=== PATIENT | female | born 1980 | race Caucasian/White ===

== ENCOUNTER 2022-12-13 06:19 | Day surgery (SDC) | payer MEDICAID, SELFPAY ==
[2022-12-13] VITALS (9 sets, daily range): BP systolic 119–148; BP diastolic 78–102; PULSE 64–82; RESP 16; TEMP 36.4–36.6; O2SAT 92–99; BMI 34.8
--- NOTE | 2022-12-13 06:16 | SUR.PREOP ---
pt called because not here at arrival time of 0600- pt states she is pulling in driveway right now
--- NOTE | 2022-12-13 06:23 | RAD_ITS ---
STUDY: X-RAY CHEST REASON FOR EXAM: Female, 42 years old. PREOP TECHNIQUE: PA and lateral views of the chest. COMPARISON: Comparison is made with prior study dated 07/05/2013. FINDINGS: There is a 2.1 cm x 1.7 cm nodular density seen on the lateral view overlying the mid dorsal vertebrae. This may represent a nodular density within the superior segment of either the right or left. Correlation with CT scan is recommended. There is no demonstrated pleural abnormality. Normal size heart. Normal mediastinum and eliezer. Normal visualized pulmonary arteries. Normal visualized aortic arch and descending thoracic aorta. Normal visualized thoracic spine. Normal visualized ribs, clavicles, and shoulders. There is no demonstrated abnormality of the visualized soft tissue structures of the upper abdomen. RAD/Chest PA and Lateral IMPRESSION: 2.1 cm x 1.7 cm nodular density seen on the lateral view as described. Correlation with a CT scan is recommended. Electronically Signed: Osman Hein MD at 8:04 EST ,
[2022-12-13 06:50] LABS: Internal QC Validated? YES +Cl - CLEAR BKGD; Pregnancy, Urine Negative Negative
[2022-12-13] MEDS: Lactated Ringers 1,000 ML 15 ML IV ×2 (07:10→08:46)
[2022-12-13] MEDS: Cefazolin 2 GM in 0.9% Normal Saline 100 ML IV (07:30)
[2022-12-13] MEDS: Lidocaine 1% /Epi 1:100 (20ml) 20 ML Vial (07:46)
[2022-12-13] MEDS: oxyCODONE 5 MG Tablet 10 MG PO (11:03)
--- NOTE | 2022-12-13 11:53 | DCINST_ITS ---
Discharge Instructions Follow Up Care Test Results: Test results from this visit will be discussed in further detail at your follow- up appointment, if applicable. Discharge Plan Admission Primary Reason for Your Visit: Left patellar tendon repair Attending Provider: Solomon Mcclelland Primary Care Provider: Magaly Mcclain Instructions Additional Instructions / Restrictions: Follow preprinted instructions from your surgeons office Discharge Orders/Prescriptions Prescriptions: New oxycodone 5 mg Tablet 10 mg PO Q4H PRN PRN (Reason: Pain Score 6-10) 7 Days Qty: 42 0RF ondansetron 4 mg tablet,disintegrating 4 mg PO Q8H PRN (Reason: nausea and vomiting) 5 Days Qty: 15 0RF Continued montelukast 10 MG tablet 10 mg PO DAILY albuterol sulfate [ProAir HFA] 1 PUFF inhaler 2 puff inhalation Q4H PRN PRN (Reason: Sob &/Or Wheezing) tramadol 50 mg Tablet 50 mg PO QHS loratadine [Claritin] 10 mg Tablet 10 mg PO DAILY Trelegy Ellipta 100-62.5-25 mcg Blister With Device 1 inh INHALATION DAILY Referrals / Follow Up: Magaly Mcclain DO [Primary Care Provider] - Solomon Mcclelland DO [Med Staff - Active Staff] - Disposition Disposition (needs filled in before D/C Order can be placed): Home, Self Care
--- NOTE | 2022-12-13 11:54 | OP.PCM_ITS ---
Report of Operation Date of Procedure: 12/13/22 Description of Surgical Findings:: Preoperative diagnosis: Left knee distal patellar tendon avulsion Postoperative diagnosis: Left knee distal patellar tendon tendon avulsion with peritendinous ossicle Procedure: Left knee patellar tendon tendon repair with removal of peritendinous ossicle Surgeon: Solomon Mcclelland DO Yarding [employer] Folding Machine Operator: EVAN Avery Anesthesia: General endotracheal Staff Nuclear Medicine Technologist: Eladio Jaramillo CRNA Complications: None apparent Drains: None Estimated blood loss: 50 cc Urinary output: None recorded IV fluids: 1 L crystalloid Specimens: None Surgical implants: Arthrex 4.75 mm swivel lock anchor x4 Surgical indications: This is a 42-year-old female seen in the outpatient setting for left knee pain and weakness. She had significant extensor lag after an injury approximately 2 weeks ago where a solid glass measuring cup landed awkwardly and caused a direct blow to her tibial tubercle. X-rays demonstrated patellar gurmeet and subsequent MRI confirmed a distal avulsion of the patellar tendon. 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 I recommended surgical intervention in the form of left patellar tendon repair. The risks, benefits, alternatives to procedure were reviewed with the patient at length. She agreed to proceed with surgery. Risks included but were not limited to bleeding, infection, loss of life or limb, risk of anesthesia, need for additional surgery, persistent pain, nonhealing tendon, arthrofibrosis, extensor lag, neurovascular injury, DVT or PE. Informed sent was obtained prior to procedure. Description of procedure: Patient was identified in the preoperative holding area by name, medical record number, and date of . The operative extremity was marked. Informed consent was confirmed with the patient. All questions were answered to his satisfaction. At time of her procedure, patient was brought to the operative suite and posit ioned supine a standard operating table. All bony prominences were well-padded. General anesthesia was induced with a laryngeal mask airway placed. After adequate anesthesia and securing the tube, a well-padded pneumatic tourniquet was applied to left upper thigh. We then prepped and draped the left lower extremity in a normal, sterile orthopedic fashion after placing a bump under the patient's left hip and elevating the left lower extremity slightly on bath blankets. 2 g Ancef was administered prior to the incision by anesthesia staff. We then performed a timeout with all parties in attendance in agreement with the side, site, and operation be performed. No concerns were voiced and we elected to proceed. I first exsanguinated the left lower extremity and Esmarch bandage. Tourniquet was inflated 280 mmHg remained up for approximately 50 minutes. Esmarch was removed. I planned a midline incision from the distal aspect of the tibial tubercle to the proximal pole the patella. Full-thickness skin flaps were developed with a 10 blade scalpel. Peritenon was encountered and split in line with the incision. Hematoma was encountered as well as patellar tendon rupture at the distal pole. There were minimal remaining fibers at the distal pole which were left intact to facilitate anatomic reapproximation of the tendon. I debrided the tibial tubercle to facilitate tendon to bone healing. I was able to identify the ossicle which was along the deep surface of the proximal aspect of the patellar tendon. I elevated the ossicle from its peritendinous attachment sharply with a 15 blade scalpel and removed the ossicle from the surgical field. I then selected my planned insertion of suture anchors for double row repair of the patellar tendon to the tibial tubercle. At the proximal attachment site of the tibial tubercle, I placed a medial and lateral double loaded 4.75 mm swivel lock anchors. Due to the dense bone in this region, we utilized a drill and threaded tap prior to anchor insertion. The anchor was then placed, loading a fiber tape suture in both anchors for additional fixation. I then took 1 limb from each suture anchor and performed a Krak?w running, locking stitch through both the medial and lateral aspects of the tendon. Using the other suture a inverted mattress was then placed. I then placed a inverted mattress fiber tape suture proximal to the sutures to develop a ripstop construct. I then selected the area for the distal row anchors approximately 1 cm distally at the distal aspect of the patellar tendon. These were placed in similar fashion as the proximal row with excellent cortical purchase. A suture limb from each suture from both the medial lateral fixation was placed through each anchor. Sutures were tensioned sequentially and the anchors were placed with excellent purchase and excellent reapproximation of the tendon to the tibial tubercle with compression gained from the double row construct. I then utilized the stay sutures in both the distal row anchors. These were tied sequentially to each other for a double amy effect for additional compression along the distal aspect of the footprint. The knee was brought through a gentle range of motion. I was able to flex the knee to approximately 40 degrees without undue tension about the construct and stable fixation. I then thoroughly irrigated the wound normal saline solution. A retinacular rent was repaired along the lateral aspect of the patellar tendon with 2 interrupted [id number] #1 Vicryl sutures. Tourniquet was deflated. Hemostasis was achieved with Bovie cautery. I then closed the peritenon with interrupted [id number] #1 Vicryl suture. Bursal layer was closed with a running, locking 0 Vicryl suture. Dermis was reapproximated buried 2-0 Vicryl suture. Skin was finally approximated with a 4-0 Monocryl V-Loc barbed suture and Dermabond. Sterile compression dressing was applied. Patient was placed in a T ROM hinged knee brace locked in full extension. Anesthesia was then reversed. Patient was safely explained in the operative suite. [place] was [place] and subsequent to PACU in stable condition. Patient received a femoral nerve block in the PACU for postoperative analgesia. Post Operative Plan: Weightbearing: Weightbearing as tolerated left lower extremity -hinged knee brace locked in extension at all times. To be removed only for hygiene purposes, at which time the knee should not be flexed. Plan to initiate physical therapy 2 weeks postoperatively for range of motion of 0 to 30 degrees with staged progression per protocol. Antibiotics: Ancef 2 g administered prior to incision DVT Prophylaxis: SCDs, 81 mg aspirin twice daily [place]: None Dressing: Maintain surgical silver dressing x5 days, then okay to remove. Okay to shower on postoperative day #2 after removing Elmo bandage. X-Rays: None Follow-up: 2 weeks in my office
== END 2022-12-13 11:43 | disposition home or self-care (01) ==
LOC: SDC 06:21 → AC 06:23
PROVIDERS: Anesthesiology; Referring Provider Student in an Organized Health Care Education/Training Program; Visit Provider Student in an Organized Health Care Education/Training Program
PROC: (CPT 27380; principal; 2022-12-13 07:15)
DX: M66.262 Spontaneous rupture of extensor tendons, left lower leg (principal); J45.909 Unspecified asthma, uncomplicated; F17.210 Nicotine dependence, cigarettes, uncomplicated; R03.0 Elevated blood-pressure reading, without diagnosis of hypertension; E66.8 Other obesity; Z68.33 Body mass index [BMI] 33.0-33.9, adult
CPT/HCPCS: 27380; 71046; 81025; C1713; J7120; J2405

== ENCOUNTER 2023-04-18 06:10 | Day surgery (SDC) | payer MEDICAID, SELFPAY ==
[2023-04-18] VITALS (7 sets, daily range): BP systolic 117–135; BP diastolic 78–89; PULSE 70–78; RESP 16–18; TEMP 36.3–37.3; O2SAT 95–100; BMI 35.5
[2023-04-18 06:44] LABS: Internal QC Validated? YES +Cl - CLEAR BKGD; Pregnancy, Urine Negative Negative
[2023-04-18] MEDS: Lactated Ringers 1,000 ML 15 ML IV (06:56)
[2023-04-18] MEDS: Cefazolin 2 GM in 0.9% Normal Saline 100 ML IV (07:50)
[2023-04-18] MEDS: Epinephrine (1 mg/ml) 1 MG/ML VIAL (08:36)
--- NOTE | 2023-04-18 09:23 | DCINST_ITS ---
Discharge Instructions Follow Up Care Test Results: Test results from this visit will be discussed in further detail at your follow- up appointment, if applicable. Discharge Plan Admission Primary Reason for Your Visit: Right shoulder arthroscopy Attending Provider: Solomon Mcclelland Primary Care Provider: Magaly Mcclain Instructions Additional Instructions / Restrictions: Follow preprinted instructions from surgeon's office. Discharge Orders/Prescriptions Prescriptions: No Action montelukast 10 MG tablet 10 mg PO DAILY albuterol sulfate [ProAir HFA] 1 PUFF inhaler 2 puff inhalation Q4H PRN PRN (Reason: Sob &/Or Wheezing) loratadine [Claritin] 10 mg Tablet 10 mg PO DAILY Trelegy Ellipta 100-62.5-25 mcg Blister With Device 1 inh INHALATION DAILY celecoxib 200 mg capsule 200 mg PO DAILY Label Comments: take 1 tablet by mouth twice a day with food if needed for pain STOP 5 DAYS PRIOR TO OR hydrocodone-acetaminophen 5-325 mg tablet 1 tab PO PRN PRN (Reason: Pain) Label Comments: take 1 to 2 tablets by mouth every 6 hours if needed for pain fluticasone propionate 50 mcg/actuation spray,suspension 1 spray INTRANASAL PRN PRN (Reason: ALLERGIES) Label Comments: place 1 spray into each nostril every morning Referrals / Follow Up: Magaly Mcclain DO [Primary Care Provider] - Solomon Mcclelland DO [Med Staff - Active Staff] - Disposition Disposition (needs filled in before D/C Order can be placed): Home, Self Care
--- NOTE | 2023-04-18 09:24 | OP.PCM_ITS ---
Report of Operation Date of Procedure: 04/18/23
--- NOTE | 2023-04-18 09:24 | PCM.OPRPT ---
Report of Operation Date of Procedure: 04/18/23 Description of Surgical Findings:: Preoperative diagnosis: 1. Right shoulder partial rotator cuff tear 2. Right shoulder subacromial impingement syndrome 3. Right long head biceps tendinosis 4. SLAP tear right shoulder Postoperative diagnosis: 1. Right shoulder partial rotator cuff tear 2. Right shoulder subacromial impingement syndrome 3. Right long head biceps tendinosis 4. SLAP tear right shoulder 5. Right shoulder os acromiale Procedure: 1. Diagnostic and operative right shoulder arthroscopy with rotator cuff repair 2. Right shoulder mini open subpectoral biceps tenodesis 3. Right shoulder arthroscopic debridement of labrum, subacromial bursitis and capsular tissue Primary Surgeon: Solomon Mcclelland DO Chief Librarian Circulation Department: Lilliam Aleman PA-C Anesthesia: General LMA with interscalene block Anesthesiologist: Dr. Knapp Complications: None apparent Specimen: None Estimated blood loss: 10 cc IV fluids: 1000 cc crystalloid Urine output: None Packing/drains: None Implants: Arthrex 4.75 mm swivel lock anchor x 1, Arthrex metallic biceps button x1 Intraoperative findings: Type II SLAP tear, extensive right shoulder subacromial bursitis, os acromiale, biceps tendinosis within the intertubercular groove, 80% partial articular sided rotator cuff tear of the supraspinatus Preoperative indications: This is a 42-year-old female who has had several months of right shoulder pain following an injury at which time she also sustained a left patellar tendon rupture. She underwent uncomplicated left patellar tendon repair on 12/13/2022. An MRI was obtained postoperatively of right shoulder demonstrated partial tearing of the supraspinatus, SLAP/biceps tendon pathology, and an exam consistent with subacromial impingement syndrome. A subacromial corticosteroid injection was administered with some mild relief. I recommended postponing surgical intervention of the right shoulder to allow recovery of the more urgent repair of her left patellar tendon rupture. She worked with physical therapy on the right shoulder but had persistent pain and weakness. Given her failure of nonoperative treatment, I recommended surgical intervention in the form of right shoulder diagnostic and operative arthroscopy with rotator cuff debridement versus repair, biceps tenodesis, subacromial decompression. I reviewed the risks, benefits, alternatives the procedure with the patient. Risks included but were not limited to bleeding, infection, loss of life or limb, nonhealing tendon, persistent pain, persistent weakness, stiffness, need for prolonged immobilization, prolonged therapy, DVT or PE, risk of anesthesia, neurovascular injury, need for additional surgery. Patient expressed understanding these risks and wished to proceed with surgery. Description of procedure: Patient was identified in the preoperative holding area by name, medical record number, and date of . Informed consent was confirmed with the patient. The operative extremity was marked with a surgical marker. All questions were answered to the patient's satisfaction. An interscalene block was administered prior to the procedure by the anesthesia staff. At time of her procedure, patient was was brought to the operative suite and positioned supine on a standard operating table. General anesthesia was induced and LMA placed. Patient was then positioned in the lateral decubitus position with all bony prominences well-padded and an axillary roll was placed. She was held in position with a beanbag. We spun the bed approximately 20 degrees. We then prepped and draped the operative upper extremity in a normal, sterile orthopedic fashion. We performed a timeout with all parties in attendance in agreement with the side, site, and operation be performed. No concerns were voiced and we elected to proceed. 2 g Ancef was administered prior to the incision by anesthesia staff. Operative upper extremity was placed in traction utilizing a traction sleeve. 10 pounds was applied to the right upper extremity throughout the majority of the case. I first outlined the bony landmarks of the shoulder. I established a standard posterior portal with an 11 blade scalpel. Blunt tipped trocar in cannula was inserted into the glenohumeral joint. The joint was insufflated with normal saline solution with epinephrine in the first 2 bags. Trocar was removed and diagnostic arthroscopy was commenced. I established a standard interval portal anteriorly with localization via spinal needle. Skin was sharply incised with 11 blade scalpel. Diagnostic arthroscopy revealed an unstable biceps anchor consistent with type II SLAP tear, pristine glenohumeral cartilage, minimal fraying at the subscapularis insertion, approximately 80% articular sided tearing of the supraspinatus. I debrided the articular side of the supraspinatus. No full-thickness tears were identified. I then performed a biceps tenotomy with the radiofrequency ablator. Biceps tendon was allowed to retract into the groove. I then turned my attention to the supraspinatus. An 0 PDS was used to tag the articular sided tear of the supraspinatus. I then withdrew the arthroscope. Utilizing the blunt tipped trocar, I reentered the shoulder in the subacromial space. I established a standard lateral portal under direct visualization with a spinal needle. An 11 blade scalpel was used to sharply incise the skin. Extensive subacromial bursitis was noted and debrided with a radial resector. I identified the tagging suture. Rotator cuff tissue was probed and I was able to probe easily through the remaining cuff tissue. I elected to take down the remaining tissue of the anterior portion of the supraspinatus with the radiofrequency ablator. Rotator cuff footprint was lightly decorticated with an arthroscopic bur. Tagging suture was removed. I then turned my attention to the acromion. The undersurface of the acromion was skeletonized with the radiofrequency ablator as well as peeling off the undersurface and attachment of the coracoacromial ligament. There was a downsloping likely type II spur off the distal portion of the acromion. During skeletonization, incomplete fusion of the acromion was noted consistent with an os acromiale. I elected to not perform a subacromial decompression due to this being a contraindication to the procedure. I then turned our attention back to the supraspinatus tear. The tear was crescent in shape. I proceeded with a ripstop type single anchor lateral row repair. A fiber tape was passed utilizing the retrograde scorpion suture passer through first the anterior and then posterior limbs of the crescent tear. We then passed a fiber loop medial to the fiber tape. These were then tensioned. They were passed through the eyelet of a 4.75 mm swivel lock anchor. I then selected a point approximately 5 mm lateral to the supraspinatus footprint. The Arthrex anchor punch was then passed in appropriate depth and withdrawn. The anchor was then placed and sutures tensioned. A swivel lock was impacted and subsequently tightened to an appropriate depth with excellent, appropriate tension of the suture. The tear appeared to reapproximate to its [place] footprint very well without excessive tension. There were no identifiable dogears. The subacromial space was then thoroughly lavaged. Arthroscopic instruments were removed. Portal sites were closed in interrupted [id number] fashion with 4-0 nylon suture. I then turned my attention to the biceps tendon. A mini open subpectoral incision was made in line with the inferior border of the pectoralis major. I bluntly dissected down to the level of the pectoralis major. I was able to identify the long of the biceps tendon medial to the pec insertion. Long head biceps tendon was retrieved out of the wound. Tendon attic portion was noted within the intertubercular groove. I then proceeded with a whipstitch proximal to the intertubercular groove portion. The remaining tendon was amputated. I then proceeded with onlay fixation utilizing a unicortical biceps button. Suture tails were passed through the button. I drilled unit cortically through the humeral cortex anteriorly. Button was passed within the intramedullary canal. Button was flipped and sutures tensioned and tied. His finger suture tail limb was then passed back through the biceps tendon and again retied for additional fixation. Sutures were cut flush. I copiously irrigated this wound with normal saline solution. Dermis was reapproximated with buried 3-0 Vicryl suture. Skin was finally reapproximated with running subcuticular 4-0 Monocryl and Dermabond. Sterile compression dressing was applied. Patient was then placed in UltraSling. She was able to be safely extubated in the operative suite. She was transferred to his gurney and subsequently to PACU in stable condition. Need for skilled assistant director of admissions: Lilliam Aleman PA-C was critical to the outcome of the case. During the course of the procedure the physician assistant director of admissions played a vital role. Her intimate knowledge of my steps in the procedure aided in safe and expedient completion of the procedure. The PA played a vital role in positioning particularly in obtaining the appropriate positioning. The PA was also vital in the retraction of soft tissues during the exposure and protecting vital structures. The PA was also vital and obtaining tendon reduction and assisting with hardware placement. She also played a vital role in closure and sling application with my direct supervision. Postoperative plan: Patient will be nonweightbearing to the operative extremity. She should maintain his sling at all times unless to shower. He may shower on postoperative day #2 if no significant drainage. She will follow up in approximately 2 weeks for suture removal. We will plan to initiate twice daily aspirin for DVT prophylaxis starting tomorrow. Prescription for oxycodone was sent to his pharmacy for postoperative analgesia.
[2023-04-18] MEDS: Bupivacaine Mpf 0.5% 30 ML VIAL (09:31)
[2023-04-18] MEDS: Ipratropium/Albuterol Sulfate 3 ML AMPUL.NEB INHALATION (10:23)
== END 2023-04-18 12:40 | disposition home or self-care (01) ==
PROVIDERS: Anesthesiology; Referring Provider Student in an Organized Health Care Education/Training Program; Visit Provider Student in an Organized Health Care Education/Training Program
PROC: (CPT 29827; principal; 2023-04-18 07:40)
DX: S46.011A Strain of muscle(s) and tendon(s) of the rotator cuff of right shoulder, initial encounter (principal); S43.431A Superior glenoid labrum lesion of right shoulder, initial encounter; M75.41 Impingement syndrome of right shoulder; M75.51 Bursitis of right shoulder; X58.XXXA Exposure to other specified factors, initial encounter; M19.011 Primary osteoarthritis, right shoulder; J45.909 Unspecified asthma, uncomplicated; F17.210 Nicotine dependence, cigarettes, uncomplicated
CPT/HCPCS: 29827; 29822; 23430; 01630; 64415; 81025; 94640; J7120; J2405